=== PATIENT | male | born 1960 | race Caucasian/White ===

== ENCOUNTER → 2024-03-03 11:33 | Outpatient (REF) | payer OTHER, SELFPAY | LOC: HWRAD 11:33 | PROVIDERS: ATTENDING PHYSICIAN Student in an Organized Health Care Education/Training Program | DX: M48.00 Spinal stenosis, site unspecified (principal) | CPT/HCPCS: 72110 ==

== ENCOUNTER → 2024-03-11 11:12 | Outpatient (REF) | payer OTHER, SELFPAY | LOC: MRI 3T 11:12 | PROVIDERS: ATTENDING PHYSICIAN Student in an Organized Health Care Education/Training Program; FAMILY PHYSICIAN Family Medicine | DX: M48.00 Spinal stenosis, site unspecified (principal) | CPT/HCPCS: 72148 ==

== ENCOUNTER 2024-06-06 07:21 | Emergency (ER) | payer OTHER, SELFPAY ==
[2024-06-06 07:22] VITALS: BP 143/100
[2024-06-06 07:42] LABS: Urine Albumin Negative (Neg - Trace); Urine Bilirubin Negative (Negative); Urine Character Clear (Clear); Urine Color Yellow; Urine Glucose Negative (Negative); Urine Ketone Negative (Negative); Urine Leukocyte Negative (Negative); Urine Nitrite Negative (Negative); Urine Occult Blood 3+ (Negative); Urine Urobilinogen Negative (Neg - 1+)
[2024-06-06 07:58] LABS: Urine Bacteria Few (Negative); Urine Red Blood Cell 0-2 /HPF (0-2); Urine Squamous Cell 0-2 /LPF (Few); Urine White Cell 0-2 /HPF (0-5)
--- NOTE | 2024-06-06 08:13 | ED.GENMED ---
History of Present Illness
General
Chief Complaint: Abdominal Symptoms
Source: patient
Exam Limitations: none
Time Seen by Provider: 06/06/24 08:02
History of Present Illness
History of Present Illness:
See MDM
Past History
Past History
ED Past Medical History: Hypercholesterolemia and Other (Kidney stones, knee and shoulder surgery)
ED Past Surgical History: Urological
Social History
Tobacco: Non-smoker
Alcohol: Occasional
Drug: None
Personal:
Living: with family
Employment: Employed (sales)
Family History
Family History: Other (n/c)
Phy Exam
Physical Exam
Physical Exam:
See MDM
Course
Orders/Labs/Results
Orders:
Orders
06/06/24 07:31
Urinalysis Reflex To Culture Urgent
Date Specimen was Collected: 06/06/24
Time Specimen was Collected: 07:29
Urine Microscopic Reflex Cult Urgent
06/06/24 08:07
CMP [Comprehensive Metabolic Panel] Urgent
Complete Blood Count/With Diff Urgent
Creatine Phosphokinase Urgent
Comment: ADD ON
Lipase Urgent
06/06/24 08:11
Add On- LAB Urgent
Tests Added?: CPK
06/06/24 08:12
CT Abd/pelvis W Iv Cont Urgent
Comment:
Reason For Exam: hematuria, back pain
Abnormal Lab Results
06/06/24 06/06/24
07:31 08:07
RBC 4.61 L 10^6/uL
(4.70-6.10)
MCH 32.8 H pg
(27.0-31.0)
Glucose 101 H mg/dl
(70-99)
Creatine Kinase 315 H U/L
(55-170)
Lipase 635 H U/L
(23-300)
Ur Occult Blood Reflex 3+ A
(Negative)
Urine Bacteria (Reflex) Few A
(Negative)
06/06/24 08:07
06/06/24 08:07
Vital Signs
Initial and Last Documented VS:
Initial Vital Signs
Temp Pulse Resp BP Pulse Ox
98 F 95 18 143/100 98
06/06/24 07:22 06/06/24 07:22 06/06/24 07:22 06/06/24 07:22 06/06/24 07:22
Last Documented Vital Signs
Temp Pulse Resp BP Pulse Ox
98 F 68 15 123/79 99
06/06/24 07:22 06/06/24 09:15 06/06/24 09:15 06/06/24 09:14 06/06/24 09:15
MDM/Problems Addressed
Differential Diagnosis Includes:
HPI and MDM Narrative:
63-year-old male presenting with hematuria and back pain. He does have a history of kidney stones but states this feels different. Over the past several weeks or so, patient has been developing abdominal bloating and worsening back pain every time
he drinks water. He states the urine is dark after minimal exercise. He denies muscle aches or increased activity. He denies dysuria. Based on his symptoms, he did set up point with his urologist.
On exam, he is well-appearing nontoxic. Given his symptoms, urinalysis was obtained which shows no evidence of infection. There is hematuria. Will obtain CPK and basic blood work in addition to CT abdomen/pelvis
Physical exam
General: Well appearing and non-toxic
HEENT: protecting airway. Mildly dry mucous membrane
Neck: appears supple
CV: No evidence of cyanosis
Resp: No accessory muscle use
Abd: Nontender
Back: No CVA tenderness
Extremities: No deformities
Neuro: alert
Psych: Normal affect
Skin: Intact
Problems Addressed including Acute and Chronic Conditions affecting care:
1. Hematuria
Acuity: acute
Prognosis: stable
Details: Urine negative for infection. Will obtain CT abdomen/pelvis
Updates
Patient found to have elevated lipase in addition to elevated CPK. We discussed that the hematuria could be related to mild rhabdomyolysis. He is not eating and drinking as much and likely due to the mild pancreatitis. We also discussed the large
kidney stone as a possible culprit. Regardless, patient going home. We discussed incidental CT findings as well. He has urology follow-up next week. Discussed follow-up with GI and increased fluid
Differential Diagnosis (but not limited to): Renal tumor, kidney stone, UTI
Testing considered: CT without contrast
Drug therapy (if applicable): OTC meds, please see d/c instruction regarding Rx drugs
Amount and/or Complexity of Data Reviewed
Clinical info obtained from: Patient
External data reviewed: N/A
Labs I independently reviewed (but not limited to): Elevated CPK, elevated lipase
Radiology: The CT scan was personally and independently reviewed. In addition, official CT report reviewed.
Pulse Ox: not hypoxic
EKG independently reviewed: N/A
Supervisor [employer]: N/A
Critical Care: N/A
Risk of Complication:
Social Determinants of health: Good social support
Discussed with other providers: N/A
Escalation of Care includes Admit/Obs: After being observed in the Emergency Department, pt stable for discharge.
Occasional wrong word or 'sound a like' substitutions may have occurred due to the inherent limitations of voice recognition software. Read the chart carefully and recognize, using context, where substitutions have occurred.
*Critical Care Note
Total Time (30-74mins, 75-104mins- exclusive of procedures): Not Applicable
ED Attending Note
-
Portions of this chart may have been created with voice recognition software.� Occasional wrong word or��sound alike� substitutions may have occurred due to the inherent limitations of voice recognition software.
Discharge Plan
Departure
Patient Disposition: Home (Routine Discharge)
Date of Disposition: 06/06/24
Time of Disposition: 10:08
Patient with high blood pressure during this ER visit?: No
Discharge Problem:
Acute pancreatitis, Renal calculus, left
Prescriptions:
New
ondansetron 4 mg Tablet,Disintegrating
4 mg PO BIDPRN PRN (Reason: nausea/vomiting) Qty: 10 0RF
oxycodone 5 mg tablet
5 mg PO Q8H PRN (Reason: Pain) Qty: 14 0RF
No Action
atorvastatin 40 MG tablet
40 mg PO QPM
Patient Comments:
06/23/18 patient ran out hasnt taken in a couple of weeks
tamsulosin 0.4 MG capsule
0.4 mg PO DAILY Qty: 7 0RF
zolpidem 10 MG tablet
5 mg PO HSPRN PRN (Reason: insomnia)
valsartan 40 mg Tablet
40 mg PO BID
icosapent ethyl [Vascepa] 1 gram Capsule
2 g PO BID
phenazopyridine 200 mg Tablet
200 mg PO TIDPRN PRN (Reason: burning with urination) Qty: 20 0RF
oxybutynin chloride 5 mg Tablet
5 mg PO TID PRN (Reason: frequent urination) Qty: 30 0RF
Referrals:
Carline Morgan MD [Active] -
David Morrison MD [Family Provider] -
Activity Restrictions/Additional Instructions:
Please return for any worsening symptoms.
You may return at any time if you have further concerns.
Please follow up with your doctor at the first available appointment, preferably this week.
Please keep your urology appointment. Please make an appointment to see the director of market intelligence as well.
Thank you for choosing [facility].
Interventions
Interventions:
*Risk Screen - Suicide Last Done: 06/06/24 07:22
*General Assessment Last Done: 06/06/24 07:22
*Neglect/Abuse Screening Last Done: 06/06/24 07:22
II-Gwlrst-Bblsriyfco Assessment Last Done: 06/06/24 08:29
Discharge Date and Time
Print Language: [id number]
[2024-06-06 08:30] LABS: % Basophils 0.6 % (0-2); % Eosinophils 2.4 % (0-6); % Immature Granulocytes 0.4 % (0-0.5); % Lymphocytes 23.8 % (20.5-51.1); % Monocytes 7.9 % (1.7-9.3); % Neutrophils 64.9 % (42.2-75.2); Absolute Eosinophils 0.1 10^3/uL (0-0.7); Absolute Lymphocytes 1.3 10^3/uL (1.2-3.4); Absolute Monocytes 0.4 10^3/uL (0.1-0.6); Absolute Neutrophils 3.5 10^3/uL (1.4-6.5); Hematocrit 43.2 % (39.0-52.0); Hemoglobin 15.1 g/dL (13.0-18.0); Mean Corpuscular Hgb 32.8 pg (27.0-31.0); Mean Corpuscular Volume 93.7 fL (80.0-94.0); Mean Platelet Volume 9.2 fL (7.4-10.4); Nucleated Red Blood Cells % 0 % (-); Platelet Count 191 10^3/uL (130-400); Red Blood Cell Count 4.61 10^6/uL (4.70-6.10); Red Cell Dist. Width 13.3 % (11.5-14.5); White Blood Cell Count 5.3 10^3/uL (4.8-10.8)
[2024-06-06 08:34] LABS: ALT (SGPT) 40 U/L (0-50); AST (SGOT) 42 U/L (17-59); Albumin 4.6 g/dl (3.5-5.0); Alkaline Phosphatase 75 U/L (38-126); Blood Urea Nitrogen 17 mg/dl (9-20); Calcium 9.6 mg/dl (8.4-10.2); Carbon Dioxide 29 mmol/L (22-30); Chloride 102 mmol/L (98-107); Creatine Phosphokinase 315 U/L (55-170); Glucose 101 mg/dl (70-99); Lipase 635 U/L (23-300); Potassium 4.2 mmol/L (3.5-5.1); Sodium 140 mmol/L (135-145); Total Bilirubin 1.1 mg/dl (0.2-1.3); Total Protein 7.1 g/dl (6.3-8.2); eGFR > 60.00
[2024-06-06 09:14] VITALS: BP 123/79
[2024-06-06] MEDS: ZOFRAN 4 MG IV (10:21)
[2024-06-06] MEDS: NSS 1000 IV (10:22)
[2024-06-06 10:35] VITALS: BP 125/94
== END 2024-06-06 11:49 | disposition home or self-care (01) ==
LOC: EMR 07:21
PROVIDERS: Emergency Medicine; EMERGENCY PHYSICIAN Student in an Organized Health Care Education/Training Program; FAMILY PHYSICIAN Family Medicine
DX: K85.90 Acute pancreatitis without necrosis or infection, unspecified (principal); N20.0 Calculus of kidney
CPT/HCPCS: 99285; 96374; 74177; 80053; 81003; 81015; 82550; 83690; 85025; Q9967

== ENCOUNTER → 2024-06-09 10:23 | Outpatient (REF) | payer OTHER, SELFPAY | LOC: RAD 10:23 | PROVIDERS: ATTENDING PHYSICIAN Urology; FAMILY PHYSICIAN Family Medicine | DX: N20.0 Calculus of kidney (principal) | CPT/HCPCS: 74018 ==

== ENCOUNTER 2024-06-15 06:12 | Day surgery (SDC) | payer OTHER, SELFPAY ==
[2024-06-15] VITALS (8 sets, daily range): BP systolic 117–128; BP diastolic 74–83; BMI 31.4
[2024-06-15] MEDS: NORMOSOL-R 1000 IV (06:37)
== END 2024-06-15 09:55 | disposition home or self-care (01) ==
LOC: SDS 06:12
PROVIDERS: ATTENDING PHYSICIAN Specialist
DX: N20.0 Calculus of kidney (principal)
CPT/HCPCS: 50590; 93005